=== PATIENT | male | born 1965 | race African-American/Black ===

== ENCOUNTER → 2018-01-02 | Emergency (ER) | payer OTHER ==
[~2018-01-02] VITALS: Ht 180.3 cm; Wt 99.8 kg
[~2018-01-02] MED LIST: POTASSIUM CHLORIDE 20 MEQ TAB.PRT.SR PO ONE
--- NOTE | 2018-01-02 03:46 | NUR ---
PT BIB SELF FROM [facility] FOR MEDICAL CLEARANCE. PT HAS HISTORY OF HEAD TRAUMA AND PTSD FROM ONGOING CIVIL WAR IN [place]. PT WAS BEING EVALUATED FOR PSYCH ISSUES. PT IS AWAKE ALERT AND ORIENTED X4, VSS. WILL CONTINUE TO MONITOR
[2018-01-02 03:51] LABS: BASOPHILS % (AUTO) 0.6 % (0.0-2.0); EOSINOPHILS % (AUTO) 3.1 % (0.0-6.0); HEMATOCRIT 42 % (39-51); HEMOGLOBIN 13.5 g/dL (13.5-17.5); LYMPHOCYTES # (AUTO) 1.6 /CMM (0.8-4.8); LYMPHOCYTES % (AUTO) 38.6 % (20.0-44.0); MEAN CORPUSCULAR HGB CONC 33 g/dl (31.0-36.0); MEAN CORPUSCULAR VOLUME 89 fL (80-96); MONOCYTES # (AUTO) 0.4 /CMM (0.1-1.30); MONOCYTES % (AUTO) 9.9 % (2.0-12.0); NEUTROPHILS % (AUTO) 47.8 % (43.0-81.0); PLATELET COUNT (AUTO) 268 /CMM (150-450); RDW COEFFICIENT OF VARIATION 14.1 (11.5-15.0); RED BLOOD CELL COUNT(AUTO) 4.68 MIL/uL (4.5-6.0); WHITE BLOOD COUNT (AUTO) 4.3 K/uL (4.3-11.0)
[2018-01-02 04:13] LABS: APPEARANCE,URINE CLEAR (CLEAR); BILIRUBIN,URINE NEGATIVE (NEGATIVE); BLOOD, URINE NEGATIVE Ery/uL (NEGATIVE); COLOR,URINE YELLOW (YELLOW); KETONES,URINE NEGATIVE (NEGATIVE); LEUKOCYTE ESTERASE ,URINE NEGATIVE (NEGATIVE); NITRITE, URINE NEGATIVE (NEGATIVE); PH,URINE 6.5 (5.0-8.0); PROTEIN,URINE NEGATIVE (NEGATIVE); UGLUCOSE NEGATIVE (NEGATIVE)
[2018-01-02 04:15] LABS: CARBON DIOXIDE 24 mmol/L (21-32); CHLORIDE 106 mmol/L (98-107); CREATININE 0.7 mg/dL (0.6-1.3); GLUCOSE 90 mg/dL (74-106); POTASSIUM 3.2 mmol/L (3.5-5.1); SODIUM SERUM 141 mmol/L (136-145); UREA NITROGEN, BLOOD 8 mg/dL (7-18)
[2018-01-02 04:23] LABS: ALANINE AMINOTRANSFERASE 23 U/L (12-78); ALBUMIN 3.8 g/dL (3.4-5.0); ALKALINE PHOSPHATASE 49 U/L (46-116); ASPARTATE AMINOTRANSFERASE 13 U/L (15-37); BILIRUBIN,DIRECT 0.2 mg/dL (0.0-0.2); TOTAL PROTEIN, SERUM 7.5 g/dL (6.4-8.2)
[2018-01-02 04:24] LABS: BACTERIA,URINE Few /HPF (None Seen); RBC,URINE 0-2 /HPF (0-2); SQUAMOUS EPITHELIAL CELL,UR Rare /HPF (None Seen); WBC,URINE 0-2 /HPF (0-3)
[2018-01-02 04:25] LABS: CALCIUM OXALATE CRYSTALS,UR Few /HPF (None Seen); MUCUS,URINE Moderate /LPF (None Seen)
[2018-01-02 04:27] LABS: ACETAMINOPHEN 0 ug/ml (10-30)
[2018-01-02 04:28] LABS: ALCOHOL, BLOOD < 3 mg/dL (0-0); SALICYLATE < 0.2 mg/dL (2.8-20.0)
--- NOTE | 2018-01-02 07:16 | NUR ---
PT SLEEPING COVERS OVER HEAD EASILY AROUSABLE SPOKE TO PT ASKING IF HE IS ALRIGHT STATED YES PT MEDICALLY CLEARED FOR [facility] F/U WITH TRANSITION TO FACILITY. WILL CONTINUE TO MONITOR.
--- NOTE | 2018-01-02 09:25 | NUR ---
CALLED [facility] GAVE REPORT TO Jesus
--- NOTE | 2018-01-02 09:30 | NUR ---
[facility] TRIP # [id number] ETA 45 MINS TO 1 HR
[2018-01-02 10:29] VITALS: BP 118/72
== END | disposition home or self-care (01) ==
LOC: ER 02:56
DX: R45.851 Suicidal ideations (principal); F43.10 Post-traumatic stress disorder, unspecified; E87.6 Hypokalemia; F32.9 Major depressive disorder, single episode, unspecified; R56.9 Unspecified convulsions; I10 Essential (primary) hypertension; Z98.890 Other specified postprocedural states
CPT/HCPCS: 36415; 80048; 80076; 80305; 80329; 81001; 85025; 99284; A4606; G0480 ×2; Z7610; 81000-TC

== ENCOUNTER 2018-04-17 22:04 | Emergency (ER) | payer OTHER ==
[~2018-04-17] VITALS: Ht 180.3 cm; Wt 90.7 kg
--- NOTE | 2018-04-17 22:20 | NUR ---
bbself from home c/c r eye pain x "few months", worse now. states "vision NOT CLEAR WITH BLACK LINES AND DOTS. PT A/O X4 AND ABLE TO MAKE NEEDS KNOWN. C/O RIGHT EYE PAIN. PLACED ON MONITOR. VSS WNL. AWAITING MD DIAZ.
[2018-04-17] MEDS ORDERED: FLUORESCEIN SODIUM OPHTH 1 EA STRIP ONE (23:47)
[2018-04-17] MEDS ORDERED: TETRACAINE HCL/PF 0.5% UD 2 ML BOTTLE ONE (23:47)
[2018-04-18] MEDS ORDERED: TONO PEN in ED SUPPLY ONICELL 1 EA MC ONE
[2018-04-18] MEDS ORDERED: FLUORESCEIN SODIUM OPHTH 1 EA STRIP OP ONE
[2018-04-18] MEDS ORDERED: TETRACAINE HCL/PF 0.5% UD 2 ML BOTTLE EACHEYE ONE
[2018-04-18 01:05] VITALS: BP 143/90
== END 2018-04-18 01:06 | disposition home or self-care (01) ==
LOC: ER 22:07
DX: H54.61 Unqualified visual loss, right eye, normal vision left eye (principal); R89.8 Other abnormal findings in specimens from other organs, systems and tissues; R56.9 Unspecified convulsions; I10 Essential (primary) hypertension; F43.10 Post-traumatic stress disorder, unspecified; Z87.820 Personal history of traumatic brain injury; Z98.890 Other specified postprocedural states

== ENCOUNTER 2018-05-17 20:12 | Emergency (ER) | payer OTHER ==
[~2018-05-17] VITALS: Ht 180.3 cm; Wt 99.8 kg
[2018-05-17 21:23] LABS: BASOPHILS % (AUTO) 0.6 % (0.0-2.0); EOSINOPHILS % (AUTO) 3.5 % (0.0-6.0); HEMATOCRIT 44 % (39-51); HEMOGLOBIN 14.6 g/dL (13.5-17.5); LYMPHOCYTES # (AUTO) 1.6 /CMM (0.8-4.8); MEAN CORPUSCULAR HGB CONC 34 g/dl (31.0-36.0); MEAN CORPUSCULAR VOLUME 89 fL (80-96); MONOCYTES # (AUTO) 0.4 /CMM (0.1-1.30); MONOCYTES % (AUTO) 7.1 % (2.0-12.0); NEUTROPHILS # (AUTO) 3.4 /CMM (1.8-8.9); NEUTROPHILS % (AUTO) 59.8 % (43.0-81.0); PLATELET COUNT (AUTO) 284 /CMM (150-450); WHITE BLOOD COUNT (AUTO) 5.7 K/uL (4.3-11.0)
[2018-05-17 21:34] LABS: CALCIUM, SERUM 9.4 mg/dL (8.5-10.1); CREATININE 0.7 mg/dL (0.6-1.3); POTASSIUM 4.1 mmol/L (3.5-5.1)
[2018-05-17 21:39] LABS: APPEARANCE,URINE Clear (CLEAR); BILIRUBIN,URINE Negative (NEGATIVE); BLOOD, URINE Negative Ery/uL (NEGATIVE); COLOR,URINE Yellow (YELLOW); KETONES,URINE Trace (NEGATIVE); LEUKOCYTE ESTERASE ,URINE Negative (NEGATIVE); NITRITE, URINE Negative (NEGATIVE); PH,URINE 5.5 (5.0-8.0); PROTEIN,URINE Negative (NEGATIVE); UGLUCOSE Negative (NEGATIVE); UROBILINOGEN,URINE 0.2 EU/dL (0.2)
[2018-05-17 21:40] LABS: ALBUMIN 3.7 g/dL (3.4-5.0); BILIRUBIN,DIRECT 0.1 mg/dL (0.0-0.2); BILIRUBIN,TOTAL 0.2 mg/dL (0.2-1.0); TOTAL PROTEIN, SERUM 7.6 g/dL (6.4-8.2)
[2018-05-17 21:50] LABS: SALICYLATE 1.2 mg/dL (2.8-20.0)
--- NOTE | 2018-05-17 23:03 | NUR ---
Pt accepted to [facility] by Dr Claire. # for report. [phone].
--- NOTE | 2018-05-17 23:07 | NUR ---
[facility] called for S transport. ETA 30 min. Trip#[id number]
--- NOTE | 2018-05-17 23:11 | NUR ---
Report given to Connor DISLA for continuation of care.
--- NOTE | 2018-05-17 23:54 | NUR ---
[facility] at bedside for transport to [facility].
[2018-05-17 23:56] VITALS: BP 124/78
== END 2018-05-17 23:57 | disposition home or self-care (01) ==
LOC: ER 20:19
DX: F32.9 Major depressive disorder, single episode, unspecified (principal); F43.10 Post-traumatic stress disorder, unspecified; R45.851 Suicidal ideations; G40.909 Epilepsy, unspecified, not intractable, without status epilepticus; F10.10 Alcohol abuse, uncomplicated; Y90.0 Blood alcohol level of less than 20 mg/100 ml; Z87.820 Personal history of traumatic brain injury; Z98.890 Other specified postprocedural states; Z60.2 Problems related to living alone; Z04.6 Encounter for general psychiatric examination, requested by authority
CPT/HCPCS: 36415; 80048-TC; 80076-TC; 80305; 81000-TC; 85025-TC; G0480

== ENCOUNTER 2018-09-11 22:30 | Emergency (ER) | payer OTHER ==
[~2018-09-11] VITALS: Ht 180.3 cm; Wt 99.8 kg
--- NOTE | 2018-09-11 23:05 | NUR ---
LEASE OUT MAN IS AT THE BEDSIDE.
--- NOTE | 2018-09-11 23:13 | NUR ---
URINE COLLECTED AND SENT TO LAB
[2018-09-11 23:23] LABS: BASOPHILS % (AUTO) 0.4 % (0.0-2.0); EOSINOPHILS % (AUTO) 1.7 % (0.0-6.0); HEMATOCRIT 41 % (39-51); HEMOGLOBIN 13.9 g/dL (13.5-17.5); LYMPHOCYTES # (AUTO) 2.2 /CMM (0.8-4.8); LYMPHOCYTES % (AUTO) 41.7 % (20.0-44.0); MEAN CORPUSCULAR HGB CONC 34 g/dl (31.0-36.0); MEAN CORPUSCULAR VOLUME 88 fL (80-96); MONOCYTES # (AUTO) 0.5 /CMM (0.1-1.30); MONOCYTES % (AUTO) 9.4 % (2.0-12.0); NEUTROPHILS # (AUTO) 2.5 /CMM (1.8-8.9); NEUTROPHILS % (AUTO) 46.8 % (43.0-81.0); PLATELET COUNT (AUTO) 288 /CMM (150-450); RED BLOOD CELL COUNT(AUTO) 4.71 MIL/uL (4.5-6.0); WHITE BLOOD COUNT (AUTO) 5.3 K/uL (4.3-11.0)
[2018-09-11 23:25] LABS: APPEARANCE,URINE Clear (CLEAR); BILIRUBIN,URINE Negative (NEGATIVE); BLOOD, URINE Negative Ery/uL (NEGATIVE); COLOR,URINE Yellow (YELLOW); KETONES,URINE 15 (NEGATIVE); LEUKOCYTE ESTERASE ,URINE Negative (NEGATIVE); NITRITE, URINE Negative (NEGATIVE); PH,URINE 6.5 (5.0-8.0); PROTEIN,URINE Negative (NEGATIVE); UGLUCOSE Negative (NEGATIVE)
[2018-09-11 23:33] LABS: CALCIUM, SERUM 8.5 mg/dL (8.5-10.1); POTASSIUM 3.7 mmol/L (3.5-5.1)
[2018-09-11 23:37] LABS: ALBUMIN 3.7 g/dL (3.4-5.0); BILIRUBIN,DIRECT 0.1 mg/dL (0.0-0.2); BILIRUBIN,TOTAL 0.8 mg/dL (0.2-1.0); TOTAL PROTEIN, SERUM 7.4 g/dL (6.4-8.2)
[2018-09-11 23:38] LABS: SALICYLATE 0.6 mg/dL (2.8-20.0)
[2018-09-11 23:43] LABS: BACTERIA,URINE Rare /HPF (None Seen); RBC,URINE 0-2 /HPF (0-2); SQUAMOUS EPITHELIAL CELL,UR Rare /HPF (None Seen); WBC,URINE 0-2 /HPF (0-3)
--- NOTE | 2018-09-11 23:50 | NUR ---
[employer] PAGED.
--- NOTE | 2018-09-12 00:06 | NUR ---
DOROTA WELLS LCSW, IS AT THE BEDSIDE SPEAKING TO THE PT.
--- NOTE | 2018-09-12 01:35 | NUR ---
PT REQUESTED WATER. PT REC'D A JUG OF WATER AND IS TOLERATING PO WELL.
--- NOTE | 2018-09-12 02:02 | NUR ---
CALLED JASMIN, INTAKE AT [facility] RE: PT'S ADMISSION STATUS.
--- NOTE | 2018-09-12 02:06 | NUR ---
ACCEPTED BY DR. PEARCE @ [facility], CALL [phone] FOR REPORT.
--- NOTE | 2018-09-12 02:10 | NUR ---
[facility] CALLED FOR TRANSPORT TO [facility]. ETA IS 90 MINS. TRIP: [id number]
--- NOTE | 2018-09-12 02:12 | NUR ---
REPORT GIVEN TO NAIF ROSALES AT [facility].
--- NOTE | 2018-09-12 02:31 | NUR ---
REPORT GIVEN TO NAIF GARCIA/LORENZO FOR [facility].
[2018-09-12 03:29] VITALS: BP 139/78
== END 2018-09-12 03:29 | disposition home or self-care (01) ==
LOC: ER 22:30
DX: F32.9 Major depressive disorder, single episode, unspecified (principal); I10 Essential (primary) hypertension; F43.10 Post-traumatic stress disorder, unspecified; Z98.890 Other specified postprocedural states; Z60.2 Problems related to living alone
CPT/HCPCS: 36415; 80048; 80076; 80305; 80307; 80329; 81001; 85025; 99284; G0480; 81000-TC

== ENCOUNTER 2018-11-04 00:40 | Emergency (ER) | payer OTHER ==
[~2018-11-04] VITALS: Ht 180.3 cm; Wt 102.1 kg
[2018-11-04 00:52] VITALS: BP 131/72
[2018-11-04 02:13] LABS: APPEARANCE,URINE Other (CLEAR); BILIRUBIN,URINE Negative (NEGATIVE); BLOOD, URINE Negative Ery/uL (NEGATIVE); COLOR,URINE Yellow (YELLOW); KETONES,URINE Negative (NEGATIVE); LEUKOCYTE ESTERASE ,URINE Negative (NEGATIVE); NITRITE, URINE Negative (NEGATIVE); PH,URINE 5.5 (5.0-8.0); PROTEIN,URINE Negative (NEGATIVE); UGLUCOSE Negative (NEGATIVE); UROBILINOGEN,URINE 0.2 EU/dL (0.2)
[2018-11-04 02:26] LABS: BASOPHILS % (AUTO) 0.6 % (0.0-2.0); EOSINOPHILS % (AUTO) 2.8 % (0.0-6.0); HEMATOCRIT 39 % (39-51); HEMOGLOBIN 13.4 g/dL (13.5-17.5); LYMPHOCYTES # (AUTO) 1.6 /CMM (0.8-4.8); LYMPHOCYTES % (AUTO) 36.9 % (20.0-44.0); MEAN CORPUSCULAR HGB CONC 34 g/dl (31.0-36.0); MEAN CORPUSCULAR VOLUME 89 fL (80-96); MONOCYTES # (AUTO) 0.6 /CMM (0.1-1.30); MONOCYTES % (AUTO) 12.6 % (2.0-12.0); NEUTROPHILS # (AUTO) 2.1 /CMM (1.8-8.9); NEUTROPHILS % (AUTO) 47.1 % (43.0-81.0); PLATELET COUNT (AUTO) 260 /CMM (150-450); RED BLOOD CELL COUNT(AUTO) 4.44 MIL/uL (4.5-6.0); WHITE BLOOD COUNT (AUTO) 4.5 K/uL (4.3-11.0)
[2018-11-04 02:44] LABS: CALCIUM, SERUM 8.4 mg/dL (8.5-10.1); CARBON DIOXIDE 24 mmol/L (21-32); CHLORIDE 105 mmol/L (98-107); CREATININE 0.8 mg/dL (0.6-1.3); GLUCOSE 95 mg/dL (74-106); POTASSIUM 3.5 mmol/L (3.5-5.1); SODIUM SERUM 141 mmol/L (136-145); UREA NITROGEN, BLOOD 14 mg/dL (7-18)
[2018-11-04 02:51] LABS: ALANINE AMINOTRANSFERASE 66 U/L (12-78); ALBUMIN 3.3 g/dL (3.4-5.0); ALCOHOL, BLOOD 111 mg/dL (0-0); ALKALINE PHOSPHATASE 54 U/L (46-116); ASPARTATE AMINOTRANSFERASE 24 U/L (15-37); BILIRUBIN,DIRECT 0.1 mg/dL (0.0-0.2); BILIRUBIN,TOTAL 0.3 mg/dL (0.2-1.0); TOTAL PROTEIN, SERUM 6.8 g/dL (6.4-8.2)
[2018-11-04 02:52] LABS: SALICYLATE 1.3 mg/dL (2.8-20.0)
[2018-11-04 02:53] LABS: ACETAMINOPHEN < 2 ug/ml (10-30)
--- NOTE | 2018-11-04 03:42 | NUR ---
PT ACCEPTED TO [facility] BY DR PEARCE. # FOR REPORT [phone]
--- NOTE | 2018-11-04 03:50 | NUR ---
[facility] called for BLS transport. trip# [phone]. Pending eta
--- NOTE | 2018-11-04 04:05 | NUR ---
[facility] eta 45 - 60 min
--- NOTE | 2018-11-04 04:46 | NUR ---
[facility] at bedside for transport to [facility].
== END 2018-11-04 04:47 ==
LOC: ER 00:44
DX: R45.851 Suicidal ideations (principal); I10 Essential (primary) hypertension; Z98.890 Other specified postprocedural states; Z60.2 Problems related to living alone
CPT/HCPCS: 36415; 80048; 80076; 80305; 80307; 80329; 81001; 85025; 99285; G0480; J7030; 81000-TC